=== PATIENT | male | born 1950 | race Caucasian/White ===

== ENCOUNTER 2016-11-13 17:14 | Emergency (ER) | payer MEDICARE, BC ==
[2016-11-13] MEDS ORDERED: Sodium Chloride 0.9% 10 ML Syringe FLUSH PRN (17:52)
[2016-11-13] MEDS ORDERED: Aspirin 81 MG Tab.Chew PO ONE (17:54)
--- NOTE | 2016-11-13 17:59 | EDM.PDOC ---
<Paul Norris - Last Filed: 11/13/16 17:59> ED HPI GENERAL MEDICAL PROBLEM - General Chief Complaint: Cardiovascular Problem Stated Complaint: SOB,DIZZY,CHEST PRESSURE Time Seen by Provider: 11/13/16 17:50 Source of Information: Reports: Patient History Limitations: Reports: No Limitations - History of Present Illness INITIAL COMMENTS - FREE TEXT/NARRATIVE: This patient comes to the emergency department because of an episode of lightheadedness. At about 1 PM he was at home he suddenly became lightheaded and dizzy and felt disoriented. He was just watching TV when it happened. His head sort of hurt. He felt like he was going to blackout like his vision was going black on him. He was unable to see the numbers in a telephone book. He did not experience any kind of vertigo or disequilibrium. There were no palpitations. His chest did feel a little bit tight and that seemed to have been a little bit after the lightheadedness started. There was never any shortness of breath. No nausea. Presently he feels just a slight tightness in the chest. 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 He takes several O. for this. He denies any history of heart disease there is no diabetes - Related Data Allergies Allergy/AdvReac Type Severity Reaction Status Date / Time No Known Allergies Allergy Verified 11/13/16 17:41 Home Meds: Home Meds Losartan [Cozaar] 1 tab PO DAILY 11/13/16 [History] Rivaroxaban [Xarelto] 1 tab PO DAILY 11/13/16 [History] Past Medical History Cardiovascular History: Reports: Hypertension - Past Surgical History GI Surgical History: Reports: Hernia Repair/Other Social & Family History - Tobacco Use Smoking Status *Q: Never Smoker ED ROS GENERAL - Review of Systems Review Of Systems: See Below Constitutional: Reports: Other (See HPI) HEENT: Reports: Other (See HPI regarding vision) Respiratory: Reports: No Symptoms Cardiovascular: Reports: Lightheadedness. Denies: Palpitations, Syncope Endocrine: Reports: No Symptoms GI/Abdominal: Reports: No Symptoms : Reports: No Symptoms Musculoskeletal: Reports: No Symptoms Skin: Reports: No Symptoms Neurological: Reports: Confusion ([place] slightly confused when this episode happened), Dizziness, Syncope ([place] like he might pass out). Denies: Paresthesia Psychiatric: Reports: No Symptoms Immunologic: Reports: No Symptoms ED EXAM, GENERAL - Physical Exam Exam: See Below Exam Limited By: Uncooperative General Appearance: Alert, No Apparent Distress Eye Exam: Bilateral Eye: EOMI, PERRL Nose: Normal Inspection Throat/Mouth: Normal Inspection Head: Atraumatic Neck: Normal Inspection Respiratory/Chest: No Respiratory Distress Cardiovascular: Normal Peripheral Pulses, Regular Rate, Rhythm, No Murmur GI/Abdominal: Non-Tender Extremities: Pedal Edema (About 1+ edema bilaterally), Other (No swelling erythema or asymmetry to the legs) Neurological: Alert, Oriented, CN II-XII Intact, Normal Cognition, No Motor/ Sensory Deficits Psychiatric: Normal Affect, Normal Mood Skin Exam: Warm, Dry, Intact Lymphatic: No Adenopathy Course - Vital Signs Last Recorded V/S: Last Vital Signs Temp 37.0 C 11/13/16 17:57 Pulse 76 11/13/16 19:30 Resp 16 11/13/16 19:30 BP 159/100 H 11/13/16 19:30 Pulse Ox 100 11/13/16 19:30 Orthostatic Blood Pressure [ 170/91 Standing] Orthostatic Blood Pressure [ 168/94 Sitting] Orthostatic Blood Pressure [ 176/91 Supine] - Orders/Labs/Meds Orders: Active Orders 24 hr Category Date Time Status EKG Documentation Completion [RC] ASDIRECTED Care 11/13/16 17:52 Active Orthostatic Vital Signs [RC] ASDIRECTED Care 11/13/16 18:45 Active Chest 1V Frontal [CR] Urgent Exams 11/13/16 17:51 Taken Head wo Cont [CT] Stat Exams 11/13/16 19:10 Taken Sodium Chloride 0.9% [Saline Flush] Med 11/13/16 17:52 Active 10 ml FLUSH ASDIRECTED PRN Saline Lock Insert [OM.PC] Urgent Oth 11/13/16 17:52 Ordered EKG 12 Lead [EK] Urgent Ther 11/13/16 17:52 Ordered Medication Orders Sodium Chloride (Saline Flush) 10 ml FLUSH ASDIRECTED PRN PRN Reason: Keep Vein Open Last Admin: 11/13/16 18:00 Dose: 10 ml Labs: Laboratory Tests 11/13/16 11/13/16 11/13/16 Range/Units 17:51 17:51 17:52 WBC 7.6 (4.5-11.0) K/uL RBC 4.24 L (4.30-5.90) M/uL Hgb 14.3 (12.0-15.0) g/dL Hct 41.5 (40.0-54.0) % MCV 98 (80-98) fL MCH 34 H (27-31) pg MCHC 35 (32-36) % Plt Count 255 (150-400) K/uL Neut % (Auto) 52 (36-66) % Lymph % (Auto) 34 (24-44) % [place] % (Auto) 12 H (2-6) % Eos % (Auto) 2 (2-4) % Baso % (Auto) 1 (0-1) % D-Dimer, Quantitative < 100 (0.0-400.0) ng/mL Sodium 143 (140-148) mmol/L Potassium 3.8 (3.6-5.2) mmol/L Chloride 108 (100-108) mmol/L Carbon Dioxide 25 (21-32) mmol/L Anion Gap 9.7 (5.0-14.0) mmol/L BUN 17 (7-18) mg/dL Creatinine 1.2 (0.8-1.3) mg/dL Est Cr Clr Drug Dosing 62.75 mL/min Estimated GFR (MDRD) > 60 (>60) Glucose 98 (74-106) mg/dL Calcium 8.0 L (8.5-10.1) mg/dL Total Bilirubin 0.2 (0.2-1.0) mg/dL AST 22 (15-37) U/L ALT 39 (12-78) U/L Alkaline Phosphatase 64 (46-116) U/L Troponin I (0.000-0.056) ng/mL [id number] Pept (5-125) pg/mL Total Protein 7.3 (6.4-8.2) g/dL Albumin 3.7 (3.4-5.0) g/dL Globulin 3.6 H (2.3-3.5) g/dL Albumin/Globulin Ratio 1.0 L (1.2-2.2) Ethyl Alcohol mg/dL 11/13/16 11/13/16 11/13/16 Range/Units 17:52 18:53 19:37 WBC (4.5-11.0) K/uL RBC (4.30-5.90) M/uL Hgb (12.0-15.0) g/dL Hct (40.0-54.0) % MCV (80-98) fL MCH (27-31) pg MCHC (32-36) % Plt Count (150-400) K/uL Neut % (Auto) (36-66) % Lymph % (Auto) (24-44) % [place] % (Auto) (2-6) % Eos % (Auto) (2-4) % Baso % (Auto) (0-1) % D-Dimer, Quantitative (0.0-400.0) ng/mL Sodium (140-148) mmol/L Potassium (3.6-5.2) mmol/L Chloride (100-108) mmol/L Carbon Dioxide (21-32) mmol/L Anion Gap (5.0-14.0) mmol/L BUN (7-18) mg/dL Creatinine (0.8-1.3) mg/dL Est Cr Clr Drug Dosing mL/min Estimated GFR (MDRD) (>60) Glucose (74-106) mg/dL Calcium (8.5-10.1) mg/dL Total Bilirubin (0.2-1.0) mg/dL AST (15-37) U/L ALT (12-78) U/L Alkaline Phosphatase (46-116) U/L Troponin I < 0.017 (0.000-0.056) ng/mL [id number] Pept 143 H (5-125) pg/mL Total Protein (6.4-8.2) g/dL Albumin (3.4-5.0) g/dL Globulin (2.3-3.5) g/dL Albumin/Globulin Ratio (1.2-2.2) Ethyl Alcohol < 3 mg/dL Meds: Medications Generic Name Dose Route Start Last Admin Trade Name Freq PRN Reason Stop Dose Admin Sodium Chloride 10 ml 11/13/16 17:52 11/13/16 18:00 Saline Flush FLUSH 10 ml ASDIRECTED PRN Administration Keep Vein Open Discontinued Medications Generic Name Dose Route Start Last Admin Trade Name Freq PRN Reason Stop Dose Admin Aspirin 324 mg 11/13/16 17:54 11/13/16 17:59 Aspirin PO 11/13/16 17:55 324 mg ONETIME ONE Administration - Re-Assessments/Exams Free Text/Narrative Re-Assessment/Exam: 11/13/16 18:03 EKG shows normal sinus rhythm at 82 beats per minute there is an incomplete right bundle branch block normal ST and T waves. My concern with this patient is that the sudden onset of lightheadedness which sounds suspicious for near syncope in a patient with a history of blood clots could suggest a pulmonary embolus. Patient's not had any type of chest pain associated with this. And of course he is already taking Zarrella so it still however consideration. Of be discussing this with the oncoming ER physician very shortly. Departure - Departure Disposition: Home, Self-Care 01 Clinical Impression: Syncope, Vision blurring, Hypertension Forms: ED Department Discharge Care Plan Goals: pt refused to be admitted but will come back immediately if he has further symptoms. rtc for carotid US--bilateral, rtc for a lexiscan. - My Orders Last 24 Hours: My Active Orders 11/13/16 18:45 Orthostatic Vital Signs [RC] ASDIRECTED 11/13/16 19:10 Head wo Cont [CT] Stat - Assessment/Plan Last 24 Hours: My Active Orders 11/13/16 18:45 Orthostatic Vital Signs [RC] ASDIRECTED 11/13/16 19:10 Head wo Cont [CT] Stat <Adrienne Carlos - Last Filed: 11/13/16 20:28> Course - Re-Assessments/Exams Free Text/Narrative Re-Assessment/Exam: 11/13/16 20:22 pt had no further symptoms. The pressure in the chest went away. He had no further visual symptoms. He had a head scan that was neg. He had a ddimer that was 100. This was discussed with Dr beckham and he felt an observation would be in order. The pat at this time is refusing to stay but if he has further problems will rtc immediately Departure - Departure Time of Disposition: 20:25 Condition: fair
[2016-11-13 19:38] VITALS: BP 159/100
--- NOTE | 2016-11-15 08:30 | CR ---
Heart size within normal limits. No focal consolidation. Pulmonary vasculature within normal limits. Radiopaque nodular density likely the left first rib tip but should be confirmed with a lordotic vi ew.
== END 2016-11-13 20:54 | disposition home or self-care (01) ==
LOC: JP.ED 17:14
DX: R55 Syncope and collapse (principal); H53.8 Other visual disturbances; I10 Essential (primary) hypertension; Z79.899 Other long term (current) drug therapy; Z98.890 Other specified postprocedural states; R06.02 Shortness of breath
CPT/HCPCS: 36415; 70450; 71010; 80053; 83880; 84484; 85025; 85379; 93005; 93010; 99284; 99285; A9270; G0480; J7050